=== PATIENT | male | born 1980 | race Caucasian/White ===

== ENCOUNTER 2017-11-11 22:33 | Emergency (ER) | payer SELFPAY ==
[~2017-11-11] VITALS: Ht 185.4 cm; Wt 104.0 kg
[2017-11-11] MEDS ORDERED: SODIUM CHLORIDE 0.9% 1,000 ML IV ONE (22:43)
[2017-11-11] MEDS ORDERED: THIAMINE HCL 100 MG/1 ML 2ML VIAL IV ONE (22:45)
[2017-11-11 23:07] LABS: BASOPHILS % 0.7 % (0.0-2.0); EOSINOPHILS % 2.1 % (0.0-5.0); HEMATOCRIT. 41.9 % (42.0-52.0); HEMOGLOBIN. 14.5 g/dL (14.0-18.0); LYMPHOCYTES % 34.6 % (20.0-50.0); MEAN CORPUSCULAR HEMOGLOBIN 29.8 pg (28.0-32.0); MEAN CORPUSCULAR VOLUME 86.3 fL (80.0-94.0); MEAN PLATELET VOLUME 8.1 fl (7.4-10.4); MONOCYTES % 6.6 % (2.0-8.0); PLATELET 225 x1000/uL (130-400); RED BLOOD CELL COUNT 4.85 mill/uL (4.7-6.1); RED CELL DISTRIBUTION WIDTH 13.6 % (11.6-14.6)
[2017-11-11 23:13] LABS: PROTHROMBIN TIME 10.5 sec (9.4-11.6)
[2017-11-11 23:17] LABS: AMMONIA 31 uMol/L (<32)
[2017-11-11 23:18] LABS: CHLORIDE 106 mEq/L (98-107); ETHANOL BLOOD 226 mg/dL
[2017-11-12 03:00] VITALS: BP 128/75
== END 2017-11-12 04:07 | disposition home or self-care (01) ==
LOC: ER 22:37 → CANBEDREQ 11-12 02:35 → ER 11-12 04:07
DX: F10.129 Alcohol abuse with intoxication, unspecified (principal); R41.0 Disorientation, unspecified; T51.0X1A Toxic effect of ethanol, accidental (unintentional), initial encounter; R74.0 Nonspecific elevation of levels of transaminase and lactic acid dehydrogenase [LDH]; M48.02 Spinal stenosis, cervical region; M25.78 Osteophyte, vertebrae
CPT/HCPCS: 36415; 70450; 72125; 80053; 80307; 80329; 82140; 85025; 85610; 96361; 96374; 99285; G0482; J3411; J7030; Z7610